=== PATIENT | female | born 1965 | race African-American/Black ===

== ENCOUNTER 2017-01-06 12:39 | Emergency (ER) | payer OTHER ==
[~2017-01-06] VITALS: Ht 177.8 cm; Wt 104.5 kg
[~2017-01-06 12:39] MED LIST: HALO1 PO; HALO10 PO
[2017-01-06] MEDS ORDERED: CefTRIAXone SODIUM 1 GM/VIAL IM ONE (13:15)
[2017-01-06] MEDS ORDERED: ACETAMINOPHEN/CODEINE 300-30 MG TABLET PO ONE (13:15)
[2017-01-06] MEDS ORDERED: NAPROXEN 250 MG TABLET PO ONE (13:15)
[2017-01-06] MEDS ORDERED: LIDOCAINE HCL/PF 1% 2 ML VIAL IM ONE (13:15)
[2017-01-06 14:49] VITALS: BP 131/84
== END 2017-01-06 15:14 | disposition home or self-care (01) ==
LOC: EMS 12:43
DX: J02.9 Acute pharyngitis, unspecified (principal); H92.09 Otalgia, unspecified ear; R51 Headache; F17.210 Nicotine dependence, cigarettes, uncomplicated; I10 Essential (primary) hypertension; F11.90 Opioid use, unspecified, uncomplicated; Z88.0 Allergy status to penicillin; Z88.6 Allergy status to analgesic agent
CPT/HCPCS: 96372; 99283; 99406; J0696; J3490